=== PATIENT | female | born 1995 | race Caucasian/White ===

== ENCOUNTER 2016-10-14 20:23 | Emergency (ER) | payer OTHER ==
[~2016-10-14] VITALS: Ht 157.5 cm; Wt 42.8 kg
[2016-10-14] MEDS ORDERED: MORPHINE SULFATE 4 MG/ML, 1ML IVPush PRN (22:00)
[2016-10-14] MEDS ORDERED: OMNIPAQUE 350 MG/ML, 100ML BOTTLE ONE (22:00)
[2016-10-14] MEDS ORDERED: ONDANSETRON 2MG/ML, 2ML IVPush ONE (22:00)
[2016-10-14] MEDS ORDERED: MORPHINE SULFATE 4 MG/ML, 1ML ONE (22:09)
[2016-10-14] MEDS ORDERED: ONDANSETRON 2MG/ML, 2ML ONE (22:09)
[2016-10-14 22:28] LABS: ASPARTATE AMINO TRANSFERASE 15 U/L (15-37); BLOOD UREA NITROGEN 8 mg/dL (7-18)
[2016-10-15 00:05] VITALS: BP 105/78
== END 2016-10-15 00:08 | disposition home or self-care (01) ==
LOC: ED 21:21
DX: K92.1 Melena (principal); R10.84 Generalized abdominal pain; K59.00 Constipation, unspecified; K52.9 Noninfective gastroenteritis and colitis, unspecified; F17.200 Nicotine dependence, unspecified, uncomplicated
CPT/HCPCS: 36415; 74177; 80053; 81001; 83690; 84703; 85025; 85610; 85730; 96374; 96375; 99285; J2405; Q9967

== ENCOUNTER 2020-03-12 19:46 | Inpatient (IN) | payer MEDICAID, OTHER ==
[~2020-03-12] VITALS: Ht 157.5 cm; Wt 50.6 kg
--- NOTE | 2020-03-12 20:04 | NUR ---
24/F. Dental infection over a month ago, given ATB (Amoxicillin). Took full dose. After 3 days experiencing abdominal pain, diarrhea, fevers, sores in mouth and anus. Decreased oral intake. Lost 20 pounds. Hx of Crohns in family, pt believes she has it. Suppose to see GI yesterday, was told to go to ER b/c MD wouldn't see d/t fever.
[2020-03-12 20:54] LABS: MEAN CORPUSCULAR HEMOGLOBIN 27.8 pg (27.0-34.8); MEAN CORPUSCULAR HGB CONC 32.3 g/dL (32.4-35.8); MEAN PLATELET VOLUME 5.8 fL (7.4-10.4); PLATELET COUNT 853 x10^3/uL (130-400); RED BLOOD COUNT 3.58 x10^6/uL (3.82-5.3)
[2020-03-12] MEDS ORDERED: HYDROmorphone 2 MG/ML, 1ML ONE (20:58)
[2020-03-12] MEDS ORDERED: ONDANSETRON 2MG/ML, 2ML ONE (20:58)
[2020-03-12] MEDS ORDERED: SODIUM CHLORIDE 0.9% 1,000ML IVBOLUS ONE (21:00)
[2020-03-12] MEDS ORDERED: ONDANSETRON 2MG/ML, 2ML IVPush ONE (21:00)
[2020-03-12] MEDS ORDERED: SODIUM CHLORIDE FLUSH 10ML SYR IVF ONE (21:00)
[2020-03-12] MEDS ORDERED: HYDROmorphone 2 MG/ML, 1ML IVPush PRN (21:00)
[2020-03-12 21:06] LABS: ALANINE AMINOTRANSFERASE 23 U/L (12-78); ALBUMIN 2.3 g/dL (3.4-5.0); ANION GAP 7 mmol/L (5-15); CALCIUM 8.8 mg/dL (8.5-10.1); CHLORIDE 95 mmol/L (98-107)
[2020-03-12 21:11] LABS: ALKALINE PHOSPHATASE 55 U/L (45-117); BILIRUBIN,TOTAL 0.3 mg/dL (0.2-1.0); TOTAL PROTEIN 7.4 g/dL (6.4-8.2)
[2020-03-12 21:21] LABS: BASOPHILS # (AUTO) 0.03 x10^3/uL (0-0.1); BASOPHILS % (AUTO) 0 % (0-1); EOSINOPHILS # (AUTO) 0.29 x10^3/uL (0-0.4); EOSINOPHILS % (AUTO) 2 % (1-7); LYMPHOCYTES # (AUTO) 1.51 x10^3/uL (1-3.4); LYMPHOCYTES % (AUTO) 13 % (22-44); MONOCYTES # (AUTO) 1.52 x10^3/uL (0.2-0.8); MONOCYTES % (AUTO) 13 % (2-9); NEUTROPHILS # (AUTO) 8.66 x10^3/uL (1.8-6.8); NEUTROPHILS % (AUTO) 72 % (42-75)
[2020-03-12 21:22] LABS: MD MORPH REVIEW ONLY
[2020-03-12 21:24] LABS: ANISOCYTOSIS 1+
[2020-03-12 21:25] LABS: HYPOCHROMIA 1+
[2020-03-12 21:26] LABS: <PLATELET ESTIMATE> INCREASED; SMALL PLATELETS 1+
[2020-03-12] MEDS ORDERED: OMNIPAQUE 350 MG/ML, 100ML BOTTLE ONE (21:44)
[2020-03-12 21:56] LABS: MICROSCOPIC INDICATED
[2020-03-12] MEDS ORDERED: CEFTRIAXONE PMX 1GM/50ML 50 ML IV ONE (23:30)
[2020-03-12] MEDS ORDERED: METRONIDAZOLE PMX 500MG/100ML 100 ML IV ONE (23:30)
[2020-03-12 23:44] LABS: CLOSTRIDIUM DIFFICILE ANTIGEN NEGATIVE; CLOSTRIDIUM DIFFICILE TOXIN NEGATIVE (Negative)
[2020-03-12] MEDS ORDERED: NORE-205 PO (23:53)
[2020-03-13] MEDS ORDERED: METRONIDAZOLE PMX 500MG/100ML 100 ML ONE (00:23)
[2020-03-13] MEDS ORDERED: CEFTRIAXONE PMX 1GM/50ML 50 ML ONE (00:23)
--- NOTE | 2020-03-13 00:40 | NUR ---
Report called to JUWAN Owusu. ED RN will administer ATBs and pt will go up to the floor.
[2020-03-13 02:19] VITALS: BP 116/76
[2020-03-13] MEDS ORDERED: ACETAMINOPHEN 325 MG TABLET PO PRN ×2 (04:00→07:30)
[2020-03-13] MEDS: LACTATED RINGERS 1,000 ML IV SCH ×3 (04:05→21:27)
[2020-03-13] MEDS: morphine SULFATE 10 MG/ML, 1ML IVPush PRN ×4 (04:30→21:34)
[2020-03-13] MEDS: METRONIDAZOLE PMX 500MG/100ML 100 ML IV SCH ×3 (06:21→18:24)
[2020-03-13 06:24] VITALS: BP 124/74
[2020-03-13 08:25] LABS: MEAN CORPUSCULAR HEMOGLOBIN 27.7 pg (27.0-34.8); MEAN PLATELET VOLUME 5.4 fL (7.4-10.4); PLATELET COUNT 861 x10^3/uL (130-400); RED BLOOD COUNT 3.52 x10^6/uL (3.82-5.3); RED CELL DISTRIBUTION WIDTH 14.1 % (9.6-15.2)
[2020-03-13] MEDS: LACTOBACILLUS CHEW TABLET PO SCH ×3 (08:25→21:27)
[2020-03-13 08:33] LABS: ANION GAP 8 mmol/L (5-15); CALCIUM 8.5 mg/dL (8.5-10.1); CHLORIDE 101 mmol/L (98-107); CREATININE 0.73 mg/dL (0.55-1.02)
[2020-03-13 08:50] LABS: BASOPHILS # (AUTO) 0.05 x10^3/uL (0-0.1); BASOPHILS % (AUTO) 1 % (0-1); EOSINOPHILS % (AUTO) 4 % (1-7); LYMPHOCYTES # (AUTO) 1.45 x10^3/uL (1-3.4); LYMPHOCYTES % (AUTO) 14 % (22-44); MD SCAN; MONOCYTES # (AUTO) 0.59 x10^3/uL (0.2-0.8); MONOCYTES % (AUTO) 6 % (2-9); NEUTROPHILS # (AUTO) 7.69 x10^3/uL (1.8-6.8); NEUTROPHILS % (AUTO) 76 % (42-75)
[2020-03-13 09:32] VITALS: BP 148/76
[2020-03-13 14:33] VITALS: BP 105/61
[2020-03-13 15:03] VITALS: BP 109/72
[2020-03-13] MEDS: ONDANSETRON 2MG/ML, 2ML IVPush PRN (18:32)
[2020-03-13 18:40] VITALS: BP 107/74
[2020-03-13] MEDS: methylPREDNISolone SOD SUCC 40 MG/ML IV SCH (21:27)
[2020-03-14] MEDS: CEFTRIAXONE PMX 1GM/50ML 50 ML IV SCH ×2 (00:29→23:34)
[2020-03-14 00:36] VITALS: BP 102/69
[2020-03-14] MEDS: METRONIDAZOLE PMX 500MG/100ML 100 ML IV SCH ×4 (01:38→19:41)
[2020-03-14 04:11] LABS: MEAN CORPUSCULAR HEMOGLOBIN 27.5 pg (27.0-34.8); MEAN CORPUSCULAR HGB CONC 31.9 g/dL (32.4-35.8); MEAN PLATELET VOLUME 5.8 fL (7.4-10.4); PLATELET COUNT 720 x10^3/uL (130-400); RED BLOOD COUNT 3.44 x10^6/uL (3.82-5.3); RED CELL DISTRIBUTION WIDTH 14.3 % (9.6-15.2)
[2020-03-14 04:21] LABS: ALBUMIN 1.9 g/dL (3.4-5.0); ANION GAP 9 mmol/L (5-15); CALCIUM 8.6 mg/dL (8.5-10.1); CHLORIDE 97 mmol/L (98-107)
[2020-03-14 04:24] LABS: % IRON SATURATION 9 % (20-55); ALANINE AMINOTRANSFERASE 13 U/L (12-78); ALKALINE PHOSPHATASE 50 U/L (45-117); BILIRUBIN,TOTAL 0.4 mg/dL (0.2-1.0); CREATININE 0.54 mg/dL (0.55-1.02); IRON LEVEL 15 mcg/dL (50-170); TOTAL IRON BINDING CAPACITY 166 mcg/dL (250-450); TOTAL PROTEIN 6.4 g/dL (6.4-8.2)
[2020-03-14 04:41] LABS: BASOPHILS # (AUTO) 0.01 x10^3/uL (0-0.1); BASOPHILS % (AUTO) 0 % (0-1); EOSINOPHILS # (AUTO) 0.02 x10^3/uL (0-0.4); EOSINOPHILS % (AUTO) 0 % (1-7); LYMPHOCYTES % (AUTO) 6 % (22-44); MD SCAN; MONOCYTES # (AUTO) 0.05 x10^3/uL (0.2-0.8); MONOCYTES % (AUTO) 1 % (2-9); NEUTROPHILS # (AUTO) 8.04 x10^3/uL (1.8-6.8); NEUTROPHILS % (AUTO) 93 % (42-75)
[2020-03-14 07:09] VITALS: BP 99/62
[2020-03-14] MEDS: LACTATED RINGERS 1,000 ML IV SCH ×2 (07:28→16:29)
[2020-03-14] MEDS: methylPREDNISolone SOD SUCC 40 MG/ML IV SCH ×2 (07:28→19:42)
[2020-03-14] MEDS: LACTOBACILLUS CHEW TABLET PO SCH ×3 (07:28→23:34)
[2020-03-14] MEDS ORDERED: FENTANYL PF 100 MCG/2ML IV PRN (11:00)
[2020-03-14] MEDS ORDERED: OXYcodone 5 MG/5 ML ORAL.SOL UDC PO PRN (11:00)
[2020-03-14] MEDS ORDERED: ONDANSETRON 2MG/ML, 2ML IVPush PRN (11:00)
[2020-03-14] MEDS: FERROUS SULFATE 325 MG TABLET PO SCH (11:00)
[2020-03-14] MEDS ORDERED: hydrALAzine 20 MG/ML, 1ML IV PRN (11:00)
[2020-03-14] MEDS ORDERED: LABETALOL 5MG/ML, 20ML IV PRN (11:00)
[2020-03-14] MEDS ORDERED: CHLORHEXIDINE 15 ML UDC ONE (11:19)
[2020-03-14] MEDS ORDERED: CHLORHEXIDINE 15 ML UDC MM ONE (11:30)
[2020-03-14] MEDS ORDERED: PROPOFOL 10 MG/ML, 50ML ONE (11:32)
[2020-03-14] MEDS ORDERED: ONDANSETRON 2MG/ML, 2ML ONE (11:32)
[2020-03-14] MEDS ORDERED: PROPOFOL 10 MG/ML, 20ML ONE (11:51)
[2020-03-14 12:41] VITALS: BP 103/71
[2020-03-14 19:18] VITALS: BP 116/74
[2020-03-14] MEDS: ONDANSETRON 2MG/ML, 2ML IVPush PRN (23:34)
[2020-03-15 01:09] VITALS: BP 109/70
[2020-03-15] MEDS: METRONIDAZOLE PMX 500MG/100ML 100 ML IV SCH ×4 (01:19→20:10)
[2020-03-15] MEDS: LACTATED RINGERS 1,000 ML IV SCH ×3 (01:20→17:06)
[2020-03-15 07:08] VITALS: BP 108/69
[2020-03-15] MEDS: methylPREDNISolone SOD SUCC 40 MG/ML IV SCH ×2 (07:44→20:10)
[2020-03-15] MEDS: LACTOBACILLUS CHEW TABLET PO SCH ×2 (07:44→17:04)
[2020-03-15] MEDS: morphine SULFATE 10 MG/ML, 1ML IVPush PRN ×3 (07:59→20:19)
[2020-03-15] MEDS: ONDANSETRON 2MG/ML, 2ML IVPush PRN (07:59)
[2020-03-15 12:43] VITALS: BP 117/76
[2020-03-15] MEDS: OXYcodone/APAP 5/325MG TABLET PO PRN (13:27)
[2020-03-15 19:06] VITALS: BP 116/80
[2020-03-16] MEDS: METRONIDAZOLE PMX 500MG/100ML 100 ML IV SCH ×5 (00:21→22:22)
[2020-03-16] MEDS: OXYcodone/APAP 5/325MG TABLET PO PRN ×3 (00:22→18:33)
[2020-03-16] MEDS: CEFTRIAXONE PMX 1GM/50ML 50 ML IV SCH (00:24)
[2020-03-16] MEDS: LACTOBACILLUS CHEW TABLET PO SCH ×4 (00:25→22:22)
[2020-03-16 00:53] VITALS: BP 110/75
[2020-03-16] MEDS: morphine SULFATE 10 MG/ML, 1ML IVPush PRN ×2 (01:39→21:11)
[2020-03-16] MEDS: LACTATED RINGERS 1,000 ML IV SCH ×3 (04:00→20:54)
[2020-03-16 06:42] VITALS: BP 101/64
[2020-03-16] MEDS: FERROUS SULFATE 325 MG TABLET PO SCH (08:55)
[2020-03-16] MEDS: methylPREDNISolone SOD SUCC 40 MG/ML IV SCH ×2 (08:59→20:54)
[2020-03-16 13:06] VITALS: BP 106/71
[2020-03-16] MEDS ORDERED: GADOTERATE 7.5 MMOL/15 ML VIAL ONE (14:53)
[2020-03-16] MEDS ORDERED: GLUCAGON 1 MG ONE (14:53)
[2020-03-16 19:13] VITALS: BP 122/79
[2020-03-17] MEDS: CEFTRIAXONE PMX 1GM/50ML 50 ML IV SCH ×2 (00:05→23:44)
[2020-03-17] MEDS: TRAZODONE 50MG TABLET PO PRN ×2 (00:06→23:44)
[2020-03-17 00:36] VITALS: BP 120/81
[2020-03-17] MEDS: OXYcodone/APAP 5/325MG TABLET PO PRN ×3 (00:48→23:44)
[2020-03-17] MEDS: METRONIDAZOLE PMX 500MG/100ML 100 ML IV SCH ×3 (04:05→18:01)
[2020-03-17 07:25] VITALS: BP 100/49
[2020-03-17] MEDS: LACTOBACILLUS CHEW TABLET PO SCH ×3 (08:55→20:28)
[2020-03-17] MEDS: methylPREDNISolone SOD SUCC 40 MG/ML IV SCH ×2 (08:56→20:28)
[2020-03-17] MEDS ORDERED: INFLIXIMAB 100 MG IV ONE (09:00)
[2020-03-17] MEDS: morphine SULFATE 10 MG/ML, 1ML IVPush PRN (12:42)
[2020-03-17 13:22] VITALS: BP 109/73
[2020-03-17] MEDS ORDERED: ACETAMINOPHEN 325 MG TABLET PO ONE (13:30)
[2020-03-17] MEDS ORDERED: FILTER 1.2 MICRON IV ONE (13:30)
[2020-03-17] MEDS ORDERED: INFLIXIMAB-DYYB 300 MG in SODIUM CHLORIDE 0.9% 250 ML IV ONE (13:30)
[2020-03-17 19:34] VITALS: BP 118/81
[2020-03-17] MEDS: LACTATED RINGERS 1,000 ML IV SCH (20:41)
[2020-03-18 00:01] VITALS: BP 121/84
[2020-03-18] MEDS: METRONIDAZOLE PMX 500MG/100ML 100 ML IV SCH ×4 (00:43→21:27)
[2020-03-18 07:39] VITALS: BP 110/78
[2020-03-18] MEDS: OXYcodone/APAP 5/325MG TABLET PO PRN ×3 (08:48→23:58)
[2020-03-18] MEDS: FERROUS SULFATE 325 MG TABLET PO SCH (08:49)
[2020-03-18] MEDS: LACTOBACILLUS CHEW TABLET PO SCH ×3 (08:49→23:56)
[2020-03-18] MEDS: ONDANSETRON 2MG/ML, 2ML IVPush PRN (08:59)
[2020-03-18] MEDS ORDERED: methylPREDNISolone SOD SUCC 40 MG/ML IV SCH (09:00)
[2020-03-18] MEDS: FAMOTIDINE 20 MG TABLET PO SCH ×2 (09:02→21:28)
[2020-03-18 15:45] VITALS: BP 113/81
[2020-03-18] MEDS: LACTATED RINGERS 1,000 ML IV SCH (17:20)
[2020-03-18 20:22] VITALS: BP 110/72
[2020-03-18] MEDS: methylPREDNISolone SOD SUCC 40 MG/ML IV SCH (21:27)
[2020-03-18] MEDS: CEFTRIAXONE PMX 1GM/50ML 50 ML IV SCH (23:58)
[2020-03-19 00:11] VITALS: BP 122/87
[2020-03-19] MEDS: TRAZODONE 50MG TABLET PO PRN ×2 (00:41→23:30)
[2020-03-19] MEDS: METRONIDAZOLE PMX 500MG/100ML 100 ML IV SCH ×4 (03:31→21:40)
[2020-03-19 05:25] LABS: HCT (SEDRATE) 30.1 % (34.6-47.8)
[2020-03-19 05:33] LABS: MEAN CORPUSCULAR HEMOGLOBIN 28.5 pg (27.0-34.8); MEAN CORPUSCULAR HGB CONC 32.7 g/dL (32.4-35.8); MEAN PLATELET VOLUME 5.8 fL (7.4-10.4); PLATELET COUNT 761 x10^3/uL (130-400); RED CELL DISTRIBUTION WIDTH 14.7 % (9.6-15.2)
[2020-03-19 05:39] LABS: ALBUMIN 2.3 g/dL (3.4-5.0); CHLORIDE 105 mmol/L (98-107)
[2020-03-19 05:44] LABS: ALANINE AMINOTRANSFERASE 12 U/L (12-78); ALKALINE PHOSPHATASE 46 U/L (45-117); ANION GAP 7 mmol/L (5-15); C-REACTIVE PROTEIN, QUANT 0.77 mg/dL (0.02-0.49); CALCIUM 8.4 mg/dL (8.5-10.1); CREATININE 0.64 mg/dL (0.55-1.02); TOTAL PROTEIN 6.1 g/dL (6.4-8.2)
[2020-03-19 05:59] LABS: BILIRUBIN,TOTAL < 0.1 mg/dL (0.2-1.0)
[2020-03-19 06:09] LABS: MD YES
[2020-03-19 06:10] LABS: BAND#(MANUAL) 0.66 x10^3/uL; BANDS%(MANUAL) 4 % (0-7); LYMPH#(MANUAL) 2.64 x10^3/uL (1-3.4); LYMPHS% (MANUAL) 16 % (22-44); MONOS#(MANUAL) 0.66 x10^3/uL (0.3-2.7); MONOS% (MANUAL) 4 % (2-9)
[2020-03-19 06:12] LABS: METAMYELOCYTES# (MANUAL) 1.49 x10^3/uL (0-0); METAMYELOCYTES% (MANUAL) 9 % (0-1); MYELOCYTES# (MANUAL) 0.66 x10^3/uL (0-0); MYELOCYTES% (MANUAL) 4 % (0-0); SEGS% (MANUAL) 63 % (42-75)
[2020-03-19 06:13] LABS: <PLATELET ESTIMATE> INCREASED; POLYCHROMASIA 1+; SMALL PLATELETS 1+
[2020-03-19 08:29] VITALS: BP 111/66
[2020-03-19] MEDS: LACTOBACILLUS CHEW TABLET PO SCH ×3 (08:43→21:40)
[2020-03-19] MEDS: FAMOTIDINE 20 MG TABLET PO SCH ×2 (08:43→21:40)
[2020-03-19] MEDS: OXYcodone/APAP 5/325MG TABLET PO PRN ×2 (09:03→18:15)
[2020-03-19] MEDS: methylPREDNISolone SOD SUCC 40 MG/ML IV SCH ×2 (09:48→21:40)
[2020-03-19 14:53] VITALS: BP 118/77
[2020-03-19 19:32] VITALS: BP 108/96
[2020-03-19] MEDS: ONDANSETRON 2MG/ML, 2ML IVPush PRN (20:44)
[2020-03-19] MEDS: CEFTRIAXONE PMX 1GM/50ML 50 ML IV SCH (23:30)
[2020-03-20 00:45] VITALS: BP 110/70
[2020-03-20] MEDS: METRONIDAZOLE PMX 500MG/100ML 100 ML IV SCH ×4 (03:28→21:20)
[2020-03-20 07:43] LABS: MEAN CORPUSCULAR HGB CONC 31.6 g/dL (32.4-35.8); MEAN PLATELET VOLUME 5.8 fL (7.4-10.4); PLATELET COUNT 729 x10^3/uL (130-400); RED BLOOD COUNT 3.66 x10^6/uL (3.82-5.3); RED CELL DISTRIBUTION WIDTH 14.8 % (9.6-15.2)
[2020-03-20 07:59] LABS: MD YES
[2020-03-20 08:00] LABS: BAND#(MANUAL) 0.32 x10^3/uL; BANDS%(MANUAL) 2 % (0-7); LYMPH#(MANUAL) 3.02 x10^3/uL (1-3.4); LYMPHS% (MANUAL) 19 % (22-44); METAMYELOCYTES# (MANUAL) 1.27 x10^3/uL (0-0); METAMYELOCYTES% (MANUAL) 8 % (0-1); MONOS#(MANUAL) 0.64 x10^3/uL (0.3-2.7); MONOS% (MANUAL) 4 % (2-9); MYELOCYTES# (MANUAL) 0.64 x10^3/uL (0-0); MYELOCYTES% (MANUAL) 4 % (0-0); SEG#(MANUAL) 10.02 x10^3/uL (1.8-6.8); SEGS% (MANUAL) 63 % (42-75)
[2020-03-20 08:01] LABS: <PLATELET ESTIMATE> INCREASED; HYPOCHROMIA 1+; POLYCHROMASIA 1+; SMALL PLATELETS 1+
[2020-03-20] MEDS: methylPREDNISolone SOD SUCC 40 MG/ML IV SCH (09:00)
[2020-03-20] MEDS: FAMOTIDINE 20 MG TABLET PO SCH ×2 (09:00→21:19)
[2020-03-20] MEDS ORDERED: FAMOTIDINE 40 MG TABLET ONE (09:09)
[2020-03-20] MEDS: LACTOBACILLUS CHEW TABLET PO SCH ×3 (09:30→21:19)
[2020-03-20] MEDS: AZATHIOPRINE 50 MG TABLET PO SCH (09:30)
[2020-03-20] MEDS: OXYcodone/APAP 5/325MG TABLET PO PRN ×3 (09:32→23:58)
[2020-03-20 09:34] VITALS: BP 108/64
[2020-03-20 15:59] VITALS: BP 112/73
[2020-03-20 20:20] VITALS: BP 115/73
[2020-03-20] MEDS: ONDANSETRON 2MG/ML, 2ML IVPush PRN (23:45)
[2020-03-20 23:48] VITALS: BP 104/67
[2020-03-21] MEDS: CEFTRIAXONE PMX 1GM/50ML 50 ML IV SCH
[2020-03-21 00:58] VITALS: BP 115/71
[2020-03-21] MEDS: METRONIDAZOLE PMX 500MG/100ML 100 ML IV SCH ×5 (03:37→21:59)
[2020-03-21 05:11] LABS: MEAN CORPUSCULAR HEMOGLOBIN 28.4 pg (27.0-34.8); MEAN CORPUSCULAR HGB CONC 32.1 g/dL (32.4-35.8); MEAN PLATELET VOLUME 5.8 fL (7.4-10.4); PLATELET COUNT 644 x10^3/uL (130-400); RED BLOOD COUNT 3.68 x10^6/uL (3.82-5.3); RED CELL DISTRIBUTION WIDTH 15.4 % (9.6-15.2)
[2020-03-21 05:20] LABS: INTERNATIONAL NORMALIZED RATIO 0.99 (0.93-1.1); PROTHROMBIN TIME 10.2 Seconds (9.6-11.5)
[2020-03-21 05:24] LABS: ALANINE AMINOTRANSFERASE 13 U/L (12-78); ALBUMIN 2.4 g/dL (3.4-5.0); ANION GAP 4 mmol/L (5-15); CALCIUM 8.1 mg/dL (8.5-10.1); CHLORIDE 106 mmol/L (98-107); CREATININE 0.62 mg/dL (0.55-1.02)
[2020-03-21 05:48] LABS: MD YES
[2020-03-21 05:50] LABS: % IRON SATURATION 22 % (20-55); ALKALINE PHOSPHATASE 43 U/L (45-117); BAND#(MANUAL) 0.31 x10^3/uL; BANDS%(MANUAL) 2 % (0-7); BILIRUBIN,TOTAL 0.1 mg/dL (0.2-1.0); EOS#(MANUAL) 0.16 x10^3/uL (0.0-0.4); EOS% (MANUAL) 1 % (1-7); IRON LEVEL 49 mcg/dL (50-170); LYMPH#(MANUAL) 4.99 x10^3/uL (1-3.4); LYMPHS% (MANUAL) 32 % (22-44); METAMYELOCYTES# (MANUAL) 0.31 x10^3/uL (0-0); METAMYELOCYTES% (MANUAL) 2 % (0-1); MONOS#(MANUAL) 1.56 x10^3/uL (0.3-2.7); MONOS% (MANUAL) 10 % (2-9); MYELOCYTES# (MANUAL) 0.16 x10^3/uL (0-0); MYELOCYTES% (MANUAL) 1 % (0-0); SEG#(MANUAL) 8.11 x10^3/uL (1.8-6.8); SEGS% (MANUAL) 52 % (42-75); TOTAL IRON BINDING CAPACITY 224 mcg/dL (250-450); TOTAL PROTEIN 6.3 g/dL (6.4-8.2)
[2020-03-21 05:51] LABS: <PLATELET ESTIMATE> INCREASED; HYPOCHROMIA 1+; POLYCHROMASIA 1+; SMALL PLATELETS 1+
[2020-03-21 07:27] VITALS: BP 104/65
[2020-03-21] MEDS ORDERED: FAMOTIDINE 40 MG TABLET ONE ×2 (08:02→21:43)
[2020-03-21] MEDS: OXYcodone/APAP 5/325MG TABLET PO PRN ×2 (08:14→21:56)
[2020-03-21] MEDS: LACTOBACILLUS CHEW TABLET PO SCH ×3 (08:14→21:56)
[2020-03-21] MEDS: FAMOTIDINE 20 MG TABLET PO SCH ×2 (08:15→21:57)
[2020-03-21] MEDS: AZATHIOPRINE 50 MG TABLET PO SCH (08:17)
[2020-03-21] MEDS: VALACYCLOVIR 500MG TABLET PO SCH ×2 (09:12→21:58)
[2020-03-21 14:49] VITALS: BP 115/81
[2020-03-21 19:05] VITALS: BP 108/69
[2020-03-22] MEDS: CEFTRIAXONE PMX 1GM/50ML 50 ML IV SCH
[2020-03-22 00:28] VITALS: BP 110/68
[2020-03-22] MEDS: TRAZODONE 50MG TABLET PO PRN (01:37)
[2020-03-22] MEDS: METRONIDAZOLE PMX 500MG/100ML 100 ML IV SCH ×3 (03:30→15:30)
[2020-03-22 08:03] VITALS: BP 111/73
[2020-03-22] MEDS: AZATHIOPRINE 50 MG TABLET PO SCH (09:00)
[2020-03-22] MEDS: FAMOTIDINE 20 MG TABLET PO SCH (09:00)
[2020-03-22] MEDS ORDERED: FAMOTIDINE 40 MG TABLET ONE (09:13)
[2020-03-22] MEDS: LACTOBACILLUS CHEW TABLET PO SCH ×2 (09:17→16:00)
[2020-03-22] MEDS: VALACYCLOVIR 500MG TABLET PO SCH (09:17)
[2020-03-22] MEDS: OXYcodone/APAP 5/325MG TABLET PO PRN (09:53)
[2020-03-22 13:30] VITALS: BP 110/67
[2020-03-22] MEDS ORDERED: FAMO20TA7 PO (16:15)
[2020-03-22] MEDS ORDERED: AZAT50TA9 PO (16:15)
[2020-03-22] MEDS ORDERED: PRED20TA PO (16:15)
[2020-03-22] MEDS ORDERED: VALA500T8 PO (16:15)
[2020-03-22] MEDS ORDERED: ONDA4TAB7 PO (16:15)
== END 2020-03-22 18:27 | disposition home or self-care (01) | DRG 385 ==
LOC: ED 20:40 → EDIP 23:26 → 3N 03-13 01:37
PROVIDERS: ADMIT Family Medicine; ATTEND Hospitalist
PROC: 0DBP8ZX Excision of Rectum, Via Natural or Artificial Opening Endoscopic, Diagnostic (ICD-10-PCS; 2020-03-14)
PROC: 0DBN8ZX Excision of Sigmoid Colon, Via Natural or Artificial Opening Endoscopic, Diagnostic (ICD-10-PCS; 2020-03-14)
PROC: 0DBM8ZX Excision of Descending Colon, Via Natural or Artificial Opening Endoscopic, Diagnostic (ICD-10-PCS; principal; 2020-03-14 11:30)
DX: K50.10 Crohn's disease of large intestine without complications (principal); E43 Unspecified severe protein-calorie malnutrition; B19.10 Unspecified viral hepatitis B without hepatic coma; E87.1 Hypo-osmolality and hyponatremia; N39.0 Urinary tract infection, site not specified; D50.0 Iron deficiency anemia secondary to blood loss (chronic); D63.8 Anemia in other chronic diseases classified elsewhere; E86.0 Dehydration; F12.90 Cannabis use, unspecified, uncomplicated; F17.290 Nicotine dependence, other tobacco product, uncomplicated; K08.89 Other specified disorders of teeth and supporting structures; K59.00 Constipation, unspecified; Z20.828 Contact with and (suspected) exposure to other viral communicable diseases; K60.3 Anal fistula; Z68.20 Body mass index [BMI] 20.0-20.9, adult; Z80.0 Family history of malignant neoplasm of digestive organs; Z86.19 Personal history of other infectious and parasitic diseases
CPT/HCPCS: 36415; 72197; 74177; 74183; 80048; 80053; 81001; 82607; 82657; 82728; 83540; 83550; 83605; 83690; 83735; 83993; 84100; 84443; 84630; 84703; 85025; 85610; 85651; 86140; 86480; 86704; 86706; 87040; 87046; 87086; 87324; 87340; 87427; 87635; 87806; 88305; 89055; 93005; 96374; 96375; 99285; G0378; J0696; J1170; J2405; J2704; J7500; Q9967; A9575; G0475; J1610; J2270; J2920; J7030; J7050; J7120; J7512; Q5103

== ENCOUNTER 2020-08-10 21:20 | Emergency (ER) | payer MEDICAID ==
[~2020-08-10] VITALS: Ht 157.5 cm; Wt 63.4 kg
[~2020-08-10 21:20] MED LIST: AZAT50TA9 PO; FAMO20TA7 PO; NORE-205 PO; ONDA4TAB7 PO; PRED20TA PO; VALA500T8 PO
[2020-08-10 21:23] VITALS: BP 133/83
[2020-08-10] MEDS ORDERED: LORazepam 1MG TABLET ONE (21:40)
[2020-08-10] MEDS ORDERED: LIDOCAINE-MPF 1%, 5ML ONE (21:40)
[2020-08-10] MEDS ORDERED: LORazepam 1MG TABLET PO ONE (22:00)
[2020-08-10] MEDS ORDERED: LIDOCAINE 2%, 20ML SQ ONE (22:00)
== END 2020-08-10 23:26 | disposition home or self-care (01) ==
LOC: ED 22:45
DX: L02.411 Cutaneous abscess of right axilla (principal); F41.1 Generalized anxiety disorder
CPT/HCPCS: 10060; 99284

== ENCOUNTER 2020-08-13 21:14 | Emergency (ER) | payer MEDICAID ==
[~2020-08-13] VITALS: Ht 157.5 cm; Wt 63.2 kg
[2020-08-13 21:35] VITALS: BP 117/61
[2020-08-13] MEDS ORDERED: OXYcodone/APAP 5/325MG TABLET ONE (21:45)
[2020-08-13] MEDS ORDERED: OXYcodone/APAP 5/325MG TABLET PO ONE (22:00)
== END 2020-08-13 22:18 | disposition home or self-care (01) ==
LOC: ED 22:00
DX: L02.411 Cutaneous abscess of right axilla (principal); F41.1 Generalized anxiety disorder; F17.290 Nicotine dependence, other tobacco product, uncomplicated
CPT/HCPCS: 99283